=== PATIENT | male | born 1955 | race Native Hawaiian/Other Pacific Islander ===

== ENCOUNTER 2018-06-17 12:36 | Observation (INO) ==
--- NOTE | 2018-06-16 15:44 | MH ---
cc: Karl Martin DMD Karl Martin DMD DATE OF ADMISSION: 06/17/2018 HISTORY OF PRESENT ILLNESS: This is a 62-year-old male who recently presented to my office for evaluation of a lesion on the left lateral border of the tongue, reports he was having discomfort for 4 months and he had some discomfort chewing food. The lesion was on the left lobe of the tongue, whitish reddish ulcerated area firm and tender measured a centimeter. 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 The plan is to do a partial glossectomy with advancement closure and sent for frozen. Benefits, risks indication of the procedure, procedure in detail and the options of no treatment including alternatives were all discussed with this patient and his daughter recently with any postop pain, infection, bleeding, damage to adjacent soft tissue or hard tissue, anesthesia complications, numbness, taste sensation difference, further surgeries as required. All questions and concerns were addressed. PAST MEDICAL HISTORY: Denied. PAST SURGICAL HISTORY: Denied. ALLERGIES: Denied. MEDICATIONS: Denied. FAMILY HISTORY: Denied. Inherited family disease denied. SOCIAL HISTORY: Does chewing tobacco/betel nut. Eating well. Denies any alcohol. sleeping well. Denies any illicit drug use. REVIEW OF SYSTEMS: Weight 161 pounds, height 5 feet 4 inches, denies any significant weight loss. HEAD: Denies any headaches, dizziness, injuries or seizures. EYES: Denies any vision, any double vision, tearing or any bright spots. NOSE: Denies any bleeding, obstruction or discharges. MOUTH: Denies any dental difficulties any gingival bleeding, dentures. He has got the left lateral border of the tongue lesion. THROAT: Denies any hoarseness, soreness or thyroid disease. LYMPH NODES: Denies any local glandular enlargement. RESPIRATORY: Denies any TB, any COPD, any shortness of breath, any cough, any asthma or any sleep apnea. CARDIOVASCULAR: Denies any pericardial pain, hypertension, murmurs, shortness of breath or excursion. No edema or phlebitis, rheumatic fever, any heart surgeries. GASTROINTESTINAL: Denies any gallbladder, any IBS, any peptic ulcer disease. GENITOURINARY: Denies UTI, any kidney disease or any renal disease. MUSCULOSKELETAL: Denies any pain or limitation of movement, any muscular weakness. ENDOCRINE: Denies any diabetes mellitus, hormone therapy anterior growth disturbances. HEMATOLOGIC: Denies anemia, or any bleeding tendencies. NEUROLOGICAL: Denies any sensory or motor disturbances. PHYSICAL EXAMINATION: VITAL SIGNS: Pulse is 50, blood pressure is 132/74 with oxygen saturation of 100% on room air. GENERAL: Alert, awake, alert and oriented x3, in no acute distress, well groomed male. HEENT: Head is normocephalic. Eyes: Pupils are equal, round, reactive to light and accommodation. Extraocular movements are intact. Nose: Symmetrical. Nares: Patent. Mouth/Oral: On the left lateral border of the tongue, he has a lesion approximately 1.5 x 1.5 cm. It is well circumscribed. There is little area of ulceration that is noted. There is some tenderness to palpation. The lesion is somewhat whitish/reddish. He has generalized stained teeth secondary to his betel nut use. Mallampati is 2. Thyromental distance is 3. He has areas of his lips and cheeks that are firm secondary to the long-term use of this betel nut, but no lesions noted. NECK: Positive range of movement. No schuyler involvement is noted. CARDIOVASCULAR: Is bradycardic, but regular rate and rhythm. RESPIRATORY: Clear to auscultation bilaterally. ABDOMEN: Nontender, nondistended, soft. GASTROINTESTINAL: Positive bowel sounds noted. EXTREMITIES: Positive range of movement, upper extremities and lower extremities. NEUROLOGIC: Cranial nerves 2-12 grossly intact. The EKG that was done on 06/10/2018 shows sinus bradycardia. LABORATORY DATA: Labs which were done on 06/10/2018. White count is 5.7, H and H 13.4 and 41.4 with platelets of 141. Chemistries: Sodium is 141, potassium is 4.3, chloride is 103, CO2 is 22 with a BUN of 10 with a creatinine of 0.99 with glucose of 97. Pathology report states from the incisional biopsy, left lateral border of the tongue invasive moderately differentiated squamous cell carcinoma arising surface ulcerate and dysplastic epithelium. CT scan of the neck: No discrete mass in the left lung base. No cervical lymphadenopathy. He has got some small nodular opacity seen on the right upper lung. Infectious versus inflammatory. IMPRESSION AND PLAN: This is a 62-year-old male with recently diagnosed squamous cell carcinoma, left lateral border of the tongue. I will put this as a lesion which is T1 N0 M0, stage I. We will plan for excision of this lesion, partial glossectomy with advancement closure and frozen. Karl Martin DMD RT/ct , 02:37 PM , 02:52 PM
[~2018-06-17 12:36] MED LIST: Glycopyrrolate Inj 1 MG/5 ML Syringe IV.PUSH ONE; Ketorolac Inj 30 MG/ML (IVP) Vial IV.PUSH ONE; Lidocaine PF 1% Inj 5 ML Syringe INFILTRATN ONE; Neostigmine Inj 5 MG/5 ML Syringe IV.PUSH ONE
[2018-06-17] MEDS ORDERED: Sodium Chlor 0.9% Inj 500 ML IV.SIG SCH (14:00)
[2018-06-17] MEDS ORDERED: Chlorhexidine Gluconate 2% 1 Pack (2 Cloths) TOPICAL SCH (14:00)
[2018-06-17] MEDS ORDERED: Metoprolol Tartrate 25 MG Tablet PO SCH (14:00)
[2018-06-17] MEDS ORDERED: Chlorhexidine Gluconate 0.12% Liq 15 ML UDC ONE (14:29)
[2018-06-17] MEDS ORDERED: Lidocaine 1%/Epinephrine 1:100,000 Inj 50 ML Vial ONE (14:30)
[2018-06-17] MEDS ORDERED: Acetaminophen 325 MG Tablet PO PRN (14:34)
--- NOTE | 2018-06-17 14:51 | P.HPIM ---
History of Present Illness Primary Care Physician: No Primary Care Physician History of Present Illness: Mr. Jane is a pleasant 62 y/o male who was recently diagnosed with SCC of the tongue. He is planned to undergo partial glossectomy today with Dr. Martin. During the patients preoperative workup he was noted to have sinus bradycardia on EKG with HR of 45 but the pt denies any symptoms of dizziness, lightheadedness or syncope. He had a longstanding history of chewing tobacco use which he has since stopped since his diagnosis of oral cancer. The [facility] Hospitalist team was asked to admit the pt overnight for observation. The pt was seen preoperatively and was without any specific complaints. He denies any headache, chest pain, SOB, palpitations, dizziness, weakness, nausea/vomiting, abdominal pain, constipation, diarrhea, urinary symptoms, weakness in his extremities, rashes or changes in weight. His daughter is present at the bedside at the time of examination. Past Medical Hx: SCC of the tongue Hx of tobacco use (chewing tobacco) Past Surgical Hx: None reported Family Hx: Noncontributory Social Hx: (+)Tobacco use, chewing tobacco for many years, recently quit with SCC diagnosis. - Diagnosis (1) Squamous cell cancer of tongue (2) Sinus bradycardia Review of Systems Constitutional: Denies chills, Denies fever(s), Denies night sweats, Denies weight loss Eyes: Denies change in vision, Denies loss of vision Ears, Nose, Mouth, and Throat: Denies dizziness Cardiovascular: Denies chest pain, Denies lightheadedness, Denies shortness of breath Respiratory: Denies cough, Denies shortness of breath Gastrointestinal: Denies abdominal pain, Denies constipation, Denies loose stools, Denies nausea, Denies vomiting Genitourinary: Denies urinary incontinence, Denies urinary urgency Musculoskeletal: Denies muscle weakness, Denies numbness Skin/Breast: Denies rash Neurologic: Denies dizziness, Denies headache(s), Denies tingling/numbness/ burning sensations Psychiatric: Denies anxiety PMFSH - History History Provided By: Patient - Medical History Medical History: Medical History (Last Updated 06/16/18 @ 10:58 by Sheila Guzman RN) Tongue cancer - Surgical History Surgical History: Surgical History (Last Reviewed 06/17/18 @ 13:49 by Mirtha Hernandez) No history of previous surgery - Tobacco History Second Hand Smoke Exposure: No Smoking Status: Never smoker - Alcohol History How Often Do You Have a Drink Containing Alcohol: Never - Substance Use History Substance History: No History of Abuse Medications and Allergies Active Medications: Active Medications Acetaminophen (Tylenol) 650 mg PO Q4H PRN PRN Reason: Temp > 100.4 Al Hydroxide/Mg Hydroxide (Milk Of Magnesia Liq) 30 ml PO Q12H PRN PRN Reason: Mild Constipation Chlorhexidine Gluconate (Chlorhexidine 2% Cloth) 3 pack TOPICAL [employer] [employer] JUSTYN Stop: 06/20/18 13:52 Cefazolin Sodium 1,000 mg/ (Sodium Chloride) 100 mls @ 200 mls/hr IV.SIG [employer] [employer] JUSTYN Stop: 06/20/18 13:59 Lactated Ringer's (Lr 1000 Ml Inj) 1,000 mls @ 30 mls/hr IV.SIG .Q24H JUSTYN Stop: 06/20/18 13:52 Sodium Chloride (Ns Inj) 500 mls @ 30 mls/hr IV.SIG .Q10H JUSTYN Stop: 06/20/18 13:52 Metoprolol Tartrate (Lopressor) 25 mg PO [facility] [employer] JUSTYN Stop: 06/20/18 13:52 Ondansetron HCl (Zofran Inj) 4 mg IV.PUSH Q6H PRN PRN Reason: NAUSEA OR VOMITING Povidone Iodine (Betadine 5% Antisepsis Kit) 1 applicatio EACH NARE [facility] Stop: 06/20/18 13:52 Allergies Allergy/AdvReac Type Severity Reaction Status Date / Time No Known Allergies Allergy Verified 06/16/18 10:58 Home Medications Medication Instructions Recorded Confirmed Type No Known Home Medications 06/16/18 06/16/18 History Exam Vital signs: Vital Signs 06/17/18 13:53 Temperature 98.5 F Pulse Rate 48 L Respiratory Rate 20 Blood Pressure 146/78 H Pulse Oximetry 99 Intake & Output 06/16/18 06/17/18 06/17/18 18:59 06:59 18:59 Weight 73.8 kg Other: Weight On Admission 73.8 kg Narrative: GENERAL: NAD, AAOx3 SKIN: Warm and dry. HEENT: Atraumatic. Normocephalic. Pupils equal and round. No scleral icterus. No injection or drainage. No nasal bleeding or discharge. Lesion on the left lateral tongue NECK: Trachea midline. No JVD. CARDIO: Regular RESP: No accessory muscle use. Clear to auscultation. Breath sounds equal bilaterally. ABD: +BS, soft, non-tender, nondistended. Hepatic and splenic margins not palpable. EXT: Extremities without clubbing, cyanosis, or edema. No obvious deformities. NEURO: Awake and alert. No obvious cranial nerve deficits. Motor grossly within normal limits. Normal speech. PSYCHIATRIC: Appropriate mood and affect; insight and judgment normal. Caprini VTE Risk Assessment Caprini VTE Risk Assessment: Moderate/High Risk (score >= 2) Caprini Risk Assessment Model: Point Value = 1 Point Value = 2 Point Value = 3 Point Value = 5 Age 41-60 Minor surgery BMI > 25 kg/m2 Swollen legs Varicose veins or History of unexplained or recurrent spontaneous Oral contraceptives or hormone replacement Sepsis (< 1 month) Serious lung disease, including pneumonia (< 1 month) Abnormal pulmonary function Acute myocardial infarction Congestive heart failure (< 1 month) History of inflammatory bowel disease Medical patient at bed rest Age 61-74 Arthroscopic surgery Major open surgery (> 45 min) Laparoscopic surgery (> 45 min) Malignancy Confined to bed (> 72 hours) Immobilizing plaster cast Central venous access Age >= 75 History of VTE Family history of VTE Factor V Leiden Prothrombin 25936H Lupus anticoagulant Anticardiolipin antibodies Elevated serum homocysteine Heparin-induced thrombocytopenia Other congenital or acquired thrombophilia Stroke (< 1 month) Elective arthroplasty Hip, pelvis, or leg fracture Acute spinal cord injury (< 1 month) Prophylaxis Regimen: Total Risk Factor Score Risk Level Prophylaxis Regimen 0-1 Low Early ambulation 2 Moderate Order ONE of the following: *Sequential Compression Device (SCD) *Heparin 5000 units SQ BID 3-4 Higher Order ONE of the following medications: *Heparin 5000 units SQ TID *Enoxaparin/Lovenox 40 mg SQ daily (WT < 150 kg, CrCl > 30 mL/min) *Enoxaparin/Lovenox 30 mg SQ daily (WT < 150 kg, CrCl > 10-29 mL/min) *Enoxaparin/Lovenox 30 mg SQ BID (WT < 150 kg, CrCl > 30 mL/min) AND/OR *Sequential Compression Device (SCD) 5 or more Highest Order ONE of the following medications: *Heparin 5000 units SQ TID (Preferred with Epidurals) *Enoxaparin/Lovenox 40 mg SQ daily (WT < 150 kg, CrCl > 30 mL/min) *Enoxaparin/Lovenox 30 mg SQ daily (WT < 150 kg, CrCl > 10-29 mL/min) *Enoxaparin/Lovenox 30 mg SQ BID (WT < 150 kg, CrCl > 30 mL/min) AND *Sequential Compression Device (SCD) Assessment and Plan - Assessment (1) Squamous cell cancer of tongue Code(s): C02.9 - Malignant neoplasm of tongue, unspecified Status: Acute Plan: SCC of the tongue - Pt is a 62 y/o male recently diagnosed with SCC of the tongue. He is planned to undergo partial glossectomy today with Dr. Martin. - Post-op pain control per Oral Surgeon - Pt is receiving IVF - Antiemetics PRN - Diet recommendations per surgery post-operatively - Constipation precautions - DVT prophylaxis with SCDs Sinus Bradycardia, asymptomatic - watch case polisher (2) Sinus bradycardia Code(s): R00.1 - Bradycardia, unspecified Status: Acute H&P: Quality - VTE Deep Vein Thrombosis/Pulmonary Embolism Present on Admission: No
[2018-06-17] MEDS ORDERED: Lidocaine 2%/Epinephrine 1:200,000 PF Inj 20 ML Vial ONE (15:22)
[2018-06-17] MEDS ORDERED: Bupivacaine/Epinephrine 0.5% Inj 50 ML Vial ONE (16:04)
[2018-06-17] MEDS ORDERED: fentaNYL Citrate Inj 100 MCG/2 ML Ampul ONE (16:54)
[2018-06-17] MEDS ORDERED: *Promethazine Inj 25 MG/ML Vial PERIprocedural use ONLY ONE (17:01)
--- NOTE | 2018-06-17 17:03 | P.OP ---
- Preoperative Diagnosis (1) Squamous cell cancer of tongue Preoperative Diagnosis: squamous cell carcinoma left tongue Postoperative Diagnosis: lisa Date of procedure: 06/17/18 Procedure: left lateral tongue partial glossectomy with advancement closure; with frozen sections Anesthesia: GETA, local (2:lidocaine with 1:100,000 epi 8cc, 0.5%marcaine with 1:200,000 epi , 5 cc) Surgeon: Karl Martin DMD Hvac Engineer: Tim Nieves Estimated blood loss (mL): 5 Pathology: none sent (7 frozens and 1 permanent specimen)
[2018-06-17] MEDS ORDERED: MethylPREDNISolone Sod Succinate Inj 125 MG/2 ML Vial ONE (17:06)
[2018-06-17] MEDS ORDERED: Acetaminophen-HYDROcodone 325/7.5 Liq 15 ML UDC PO PRN (18:07)
[2018-06-17] MEDS ORDERED: Morphine Inj 4 MG/ML Vial IV.PUSH PRN (18:08)
--- NOTE | 2018-06-17 19:21 | MP ---
cc: Karl Matrin DMD, Roger DMD DATE OF OPERATION: 06/17/2018 PREOPERATIVE DIAGNOSIS: Squamous cell carcinoma, left tongue. POSTOPERATIVE DIAGNOSIS: Squamous cell carcinoma, left tongue. PROCEDURE PERFORMED: Left lateral tongue partial glossectomy with advancement closure with frozen. ANESTHESIA: General. Also, 2% lidocaine with 1:100,000 epinephrine, approximately 8 mL, also 0.5% Marcaine with 1:200,000 epinephrine, approximately 5 mL at the end of the procedure. SURGEON: Karl Martin DMD WEED CONTROLLER: Tim Nieves DDS, MD ESTIMATED BLOOD LOSS: Approximately 5 mL PATHOLOGY: specimens frozen, permanent specimens sent. COMPLICATIONS: None. DISPOSITION: The patient tolerated the procedure well, extubated, and taken to the PACU. INDICATIONS FOR PROCEDURE: Mr. Jane is a 62-year-old male who for the past several months is having this nonhealing lesion on the left lateral border of the tongue. He has a history of tobacco use, specifically betel nut juice. An incisional biopsy was made and came back as a squamous cell carcinoma. It was about a 1.5 x 1.5 cm in size, a T1 N0 M0. The plan is to do a partial glossectomy and resect this with advancement closure. Benefits, risks, indications for the procedure, procedure in detail, and the options of no treatment at all were discussed with this patient and his daughter. Risks not limited to any postop pain, infection, bleeding, damage to adjacent soft tissue, hard tissue, anesthesia complications, numbness, taste and sensation alteration, possible recurrence of the lesion, further surgeries as required. All questions and concerns were addressed. Consent is signed in the chart. PROCEDURE IN DETAIL: The patient was met perioperatively. Past medical history was reviewed and updated. No changes noted. The left side of the face was marked. The patient was now taken to the operating suite and put on the table in a supine position. He underwent oral intubation. Eyes were taped shut. All pressure points were padded. At this time, a timeout was taken to identify the patient, the site, the procedure, and the surgeon and all were in agreement. Betadine prep was done on the outside of the mouth. The patient was draped in normal sterile fashion. A bite block was placed in the right side of the mouth, back of the throat was suctioned. A moistened Ray-Marquise was used as a throat pack. 2% lidocaine with 1:100,000 epinephrine was injected in the anterior tip of the tongue and then A 2-0 silk suture was used through the tongue to pull the tongue out. On the left lateral border of the tongue, I used a marking pen to make 4 points posterior, anterior, superior and inferior of this lesion and then connected them as the outline of this area of resection. Then, remaining 2% lidocaine with 1:100,000 epinephrine was injected on the tongue. Peridex irrigation was done. A #15 blade was then used to follow the margins and remove this lesion. Once this was done, frozens were done next. The superior anterior, superior posterior, inferior anterior, inferior posterior and 3 deep margins. Deep anterior, deep middle and deep posterior were taken. It was sent to ____. The pathologist called back and all margins were clear. Note that the lesion was excised all the way down deep to the muscle layer. Clinically, does not appear to have any residual lesions. The permanent specimen was marked at 12 o'clock with 2-0 silk sutures, long/long, the 3 o'clock was short, 6 o'clock was long/short and 9 o'clock did not have any sutures. The site was irrigated with saline solution. The area of surgical site was now undermined for a tension-free closure. Finally, 3-0 Vicryl suture was used to close this area of the tongue, left lateral border of the tongue with horizontal mattress suture. Saline irrigation was used. The back of the throat was suctioned. The throat pack and the bite block were removed. The 2-0 silk suture, which was to pull the tongue was also removed. Marcaine 0.5% with 1:200,000 epinephrine was injected inferiorly as a nerve block and then to the tongue, left of the surgical site. The patient tolerated the procedure well, extubated, and taken to the PACU. All sponge and needle counts were accounted for. Karl Martin DMD RT/ct/ll , 05:03 PM , 05:15 PM [facility]ITALMeghan
[2018-06-17] MEDS: Chlorhexidine Gluconate 0.12% Liq 15 ML UDC SWISH-SPIT SCH (20:18)
[2018-06-17] MEDS: MethylPREDNISolone Sod Succinate Inj 125 MG/2 ML Vial IV.PUSH SCH (20:23)
[2018-06-18] MEDS: MethylPREDNISolone Sod Succinate Inj 125 MG/2 ML Vial IV.PUSH SCH (02:20)
--- NOTE | 2018-06-18 07:44 | P.PN ---
Subjective Interval history: POD 1 s/p left lateral tongue partial glossectomy with advancement closure; frozen sections pt seen and examined aaox3, nad, tolerating po, ambulating, voiding no complaints, denies sob/difficulty swallowing/difficulty breathing Physical Exam Vital signs: Vital Signs 06/17/18 13:53 06/17/18 16:45 06/17/18 18:10 Temperature 98.5 F 97.4 F L Pulse Rate 48 L 79 47 L Respiratory Rate 20 16 16 Blood Pressure 146/78 H 134/71 120/59 L Pulse Oximetry 99 99 99 06/17/18 20:00 06/18/18 00:00 06/18/18 04:00 Temperature 98.9 F 97.1 F L 97.1 F L Pulse Rate 38 L 46 L 44 L Respiratory Rate 16 16 16 Blood Pressure 131/63 117/64 124/64 Pulse Oximetry 100 99 100 06/18/18 05:11 Temperature Pulse Rate Respiratory Rate 17 Blood Pressure Pulse Oximetry Intake & Output 06/17/18 06/18/18 06/18/18 18:59 06:59 18:59 Intake Total 700 / 700 Output Total 5 / 5 Balance 695 / 695 Weight 73.8 kg Intake: IV 100 / 100 Ancef Inj 1,000 MG In NS Inj 100 / 100 100 ML @ 100 mls/hr IV.SIG ONCE ONE Rx#:[id number] Anesthesia Amount 600 / 600 Output: Estimated Blood Loss 5 / 5 Other: Weight On Admission 73.8 kg - Constitutional no acute distress - Detailed ENT Exam Comments: tongue - pink well perfused minimal heme noted, oozing mild edema, soft no elevation fom/tongue wound margins well approximated, sutures intact talking well, good mobility of tongue Assessment and Plan - Assessment (1) Squamous cell cancer of tongue Code(s): C02.9 - Malignant neoplasm of tongue, unspecified Status: Acute - Plan squamous cell carcinoma left tongue s/p left lateral tongue partial glossectomy, with advancement closure POD 1 ok to d/c to home from oms standpoint f/up dr seay 1 week - [phone] mechanical soft diet; avoid hot food x 48 hours can have ice pops no strenuous activity/exercise f/up with primary physician/coater slate
--- NOTE | 2018-06-18 09:01 | P.PNIM ---
Subjective Interval history: Pt overall feeling well. He is still on 2L of supplemental O2 but does not use O2 at home, discussed with nurse weaning off the O2 today He is still requiring IV pain meds, discussed with nurse providing only oral pain meds this morning to ensure his pain can be adequately controlled Afebrile Physical Exam Vital signs: Vital Signs 06/17/18 13:53 06/17/18 16:45 06/17/18 18:10 Temperature 98.5 F 97.4 F L Pulse Rate 48 L 79 47 L Respiratory Rate 20 16 16 Blood Pressure 146/78 H 134/71 120/59 L Pulse Oximetry 99 99 99 06/17/18 20:00 06/18/18 00:00 06/18/18 04:00 Temperature 98.9 F 97.1 F L 97.1 F L Pulse Rate 38 L 46 L 44 L Respiratory Rate 16 16 16 Blood Pressure 131/63 117/64 124/64 Pulse Oximetry 100 99 100 06/18/18 05:11 06/18/18 08:00 Temperature 97.7 F Pulse Rate 78 Respiratory Rate 17 18 Blood Pressure 174/84 H Pulse Oximetry 96 Intake & Output 06/17/18 06/18/18 06/18/18 18:59 06:59 18:59 Intake Total 700 / 700 Output Total 5 / 5 Balance 695 / 695 Weight 73.8 kg Intake: IV 100 / 100 Ancef Inj 1,000 MG In NS Inj 100 / 100 100 ML @ 100 mls/hr IV.SIG ONCE ONE Rx#:[id number] Anesthesia Amount 600 / 600 Output: Estimated Blood Loss 5 / 5 Other: Weight On Admission 73.8 kg Narrative: General: NAD, AAOx3 ENT: Sutures intact, minimal blood oozing noted. Chest: CTA Cardiac: Regular Abd: +BS, soft ND/NT Ext: No edema Assessment and Plan - Assessment (1) Squamous cell cancer of tongue Code(s): C02.9 - Malignant neoplasm of tongue, unspecified Status: Acute Plan: SCC of the tongue - Pt is a 62 y/o male recently diagnosed with SCC of the tongue. - s/p left lateral tongue partial glossectomy, with advancement closure on with Dr. Martin - Post-op pain control per Oral Surgeon, discussed with nurse using only oral pain meds this morning to ensure adequate control of pain prior to discharge. - Antiemetics PRN - Diet recommendations per OMS: mechanical soft diet; avoid hot food x 48 hours , can have ice pops - Pt has been cleared for d/c to home from oms standpoint today - He is to followup with Dr Martin in 1 week - Pt recommended to avoid strenuous activity/exercise - Per Dr. Martin's discharge orders, the pt already has antibiotics and pain medications at home which were prescribed pre-operatively. - He will need to fu with primary physician as well. Sinus Bradycardia, asymptomatic - monitoring and evaluation advisor (2) Sinus bradycardia Code(s): R00.1 - Bradycardia, unspecified Status: Acute
[2018-06-18] MEDS: Chlorhexidine Gluconate 0.12% Liq 15 ML UDC SWISH-SPIT SCH (09:26)
== END 2018-06-18 12:40 | disposition home or self-care (01) ==
LOC: HSDC 12:36 → N07 12:36
PROVIDERS: ADMIT Hospitalist; ATTEND Hospitalist